=== PATIENT | male | born 1995 | race Caucasian/White ===

== ENCOUNTER 2019-07-05 09:50 | Emergency (ER) | payer OTHER, SELFPAY ==
[2019-07-05 10:00] VITALS: BP 125/67; PULSE 87; RESP 20; TEMP 36.8; O2SAT 98
--- NOTE | 2019-07-05 10:10 | ED.URI ---
HPI - URI/Sore Throat General Chief Complaint: Upper Respiratory Infection Stated Complaint: cough/sore throat/body aches Time Seen by Provider: 07/05/19 10:10 Source: patient and RN notes reviewed Mode of arrival: ambulatory Limitations: no limitations History of Present Illness HPI Narrative: A 23 y/o male presents to the with multiple, constant, URI symptoms for the past 2-3 days. He states that he woke up with a sore throat 3 days ago and has since developed body aches, fatigue, and a dry cough. He reports that his mother has been sick with similar symptoms for a couple weeks. He notes that NyQuil has helped with his symptoms. He denies any ear aches, wheezes, N/V/D, and any other medical complaints at this time. Influenza POC test positive for type A influenza MD elicited complaint: other (Multiple) Onset (ago): day(s) (3) Consistency: constant Relieving factors: OTC cold medicine Context: sick contacts (mother) Associated symptoms: sore throat, cough (dry) and other (fatigue and body aches) Treatments prior to arrival: cold medicine Related Data Home Medications Medication Instructions Recorded Confirmed [id number] cap PO 07/05/19 [Vicks DayQuil-NyQuil] Mucinex 07/05/19 acetaminophen [Tylenol] 325 mg PO ONCE 07/05/19 07/05/19 Allergies Allergy/AdvReac Type Severity Reaction Status Date / Time No Known Allergies Allergy Verified 07/05/19 10:06 Review of Systems Review of Systems: Narrative: General/Constitutional: No weight loss,fever. Reports fatigue and body aches. Eyes: N0: Redness,discharge Ears/Nose/Throat: No: Epistaxis,ear discharge, ear aches. Reports a sore throat. Respiratory: Denies: Hemoptysis or wheezes. Reports a dry cough Gastrointestinal: No N/V/D, Bleeding-rectal Skin: No Lumps, eruption Neurologic: No Focal Weakness,Sz Hematologic: Denies: Petechiae/Purpura Psychiatric: No: Suicida ideationl All Other Systems: Reviewed and Negative [facility] Past Medical History Medical History (Updated 07/05/19 @ 10:50 by Kamar Meek MD) Depression Surgical History Surgical History (Updated 07/05/19 @ 10:41 by William Elias) No history of previous surgery Social History Social History (Updated 07/05/19 @ 10:41 by William Elias) Smoking status: Never smoker Exam Narrative: Exam Narrative: General Appearance: Well appearing, Well nourished EYE: PERRLA, Conjunctiva clear Ears: Auditory canal normal, TM normal Nose: Rhinorrhea, Mucousal erythema Mouth/Throat: MM moist, Uvula midline, Pharyngeal erythema Neck: Supple, No adenopathy Respiratory: No respiratory distress, Breath sounds equal, Clear to auscultation(with rare wheeze] Cardiovascular: RRR, No JVD Musculoskeletal: Non tender, Normal strength Skin: Warm, Dry Neurological: A&O x3, CN II-XII intact Psychiatric: Normal mood, Normal affect Course Vital Signs Vital signs: Vital Signs Temperature 98.2 F 07/05/19 10:00 Pulse Rate 87 07/05/19 10:00 Respiratory Rate 20 07/05/19 10:00 Blood Pressure 125/67 07/05/19 10:00 Pulse Oximetry 98 07/05/19 10:00 Temperature 98.2 F 07/05/19 10:00 Pulse Rate 87 07/05/19 10:00 Respiratory Rate 20 07/05/19 10:00 Blood Pressure 125/67 07/05/19 10:00 Pulse Oximetry 98 07/05/19 10:00 MDM - URI/Sore Throat Lab Data Labs: Influenza A Screen Positive Reference Range: Negative Influenza B Screen Negative Reference Range: Negative Discharge Plan Discharge Clinical Impression: Influenza A Patient Disposition: Home, Self-Care Condition: Stable Instructions: Influenza (ED) Prescriptions: New benzonatate [Tessalon Perles] 100 mg capsule 100 mg PO TID Qty: 20 RF: 1 codeine-guaifenesin 10-100 mg/5 mL liquid 7.5 ml PO Q6H PRN (Reason: cough) Qty: 118 RF: 0 oseltamivir [Tamiflu] 75 mg capsule 75 mg PO Q12H 5 Days Qty: 10 RF: 0 No Action
== END 2019-07-05 10:18 | disposition home or self-care (01) ==
PROVIDERS: Emergency Provider Emergency Medicine
DX: J10.1 Influenza due to other identified influenza virus with other respiratory manifestations (principal)
CPT/HCPCS: 87804; 99203; G0463

== ENCOUNTER 2020-08-12 09:43 | Outpatient (CLI) | payer OTHER, SELFPAY ==
[2020-08-12 11:27] LABS: Hemoglobin A1C 4.9 % (<5.7)
[2020-08-12 11:39] LABS: Alanine Aminotransferase 45 U/L (4-50); Albumin Level 4.4 g/dL (3.5-5.1); Alkaline Phosphatase 71 U/L (38-126); Anion Gap 4 mmol/L (8-16); Aspartate Amino Transferase 31 U/L (17-59); Bilirubin,Total 0.5 mg/dL (0.2-1.3); Blood Urea Nitrogen 14 mg/dL (9-20); Calcium 9.3 mg/dL (8.4-10.2); Carbon Dioxide 32 mmol/L (22-30); Chloride 103 mmol/L (98-107); Estimated Glomerular Filt Rate > 60; Glucose 93 mg/dL (75-110); Potassium 4.2 mmol/L (3.4-5.0); Sodium 139 mmol/L (137-145)
== END 2020-08-12 09:44 | disposition home or self-care (01) ==
PROVIDERS: PCP Internal Medicine; Visit Provider Nurse Practitioner
DX: Z00.00 Encounter for general adult medical examination without abnormal findings (principal); Z68.39 Body mass index [BMI] 39.0-39.9, adult
CPT/HCPCS: 36415; 80053; 83036; 84443

== ENCOUNTER 2021-09-08 08:46 | Outpatient (CLI) | payer OTHER, SELFPAY ==
[2021-09-08 09:42] LABS: Alanine Aminotransferase 43 U/L (4-50); Albumin Level 4.5 g/dL (3.5-5.1); Alkaline Phosphatase 74 U/L (38-126); Anion Gap 6 mmol/L (8-16); Aspartate Amino Transferase 31 U/L (17-59); Bilirubin,Total 0.4 mg/dL (0.2-1.3); Blood Urea Nitrogen 15 mg/dL (9-20); Calcium 8.9 mg/dL (8.4-10.2); Carbon Dioxide 28 mmol/L (22-30); Chloride 105 mmol/L (98-107); Cholesterol 184 mg/dL (0-200); Estimated Glomerular Filt Rate > 60; Glucose 101 mg/dL (65-110); HDL Direct 45 mg/dL; Potassium 4.1 mmol/L (3.4-5.0); Sodium 139 mmol/L (137-145); Triglycerides 54 mg/dL (<150)
[2021-09-08 09:54] LABS: LDL Cholesterol Direct 109 mg/dL
== END 2021-09-08 08:47 | disposition home or self-care (01) ==
LOC: ANHLAB 08:49
PROVIDERS: PCP Internal Medicine; Visit Provider Nurse Practitioner
DX: R63.5 Abnormal weight gain (principal); Z13.29 Encounter for screening for other suspected endocrine disorder; Z13.6 Encounter for screening for cardiovascular disorders; Z13.220 Encounter for screening for lipoid disorders
CPT/HCPCS: 36415; 80053; 80061; 84443

== ENCOUNTER 2022-09-09 07:53 | Outpatient (CLI) | payer OTHER, SELFPAY ==
[2022-09-09 08:20] LABS: Alanine Aminotransferase 36 U/L (6-50); Albumin Level 4.6 g/dL (3.5-5.1); Alkaline Phosphatase 68 U/L (38-126); Anion Gap 6 mmol/L (8-16); Aspartate Amino Transferase 28 U/L (17-59); Bilirubin,Total 0.6 mg/dL (0.2-1.3); Blood Urea Nitrogen 12 mg/dL (9-20); Carbon Dioxide 31 mmol/L (22-30); Chloride 102 mmol/L (98-107); Cholesterol 196 mg/dL (0-200); Estimated Glomerular Filt Rate > 60; Glucose 99 mg/dL (65-110); HDL Direct 43 mg/dL; Potassium 4.1 mmol/L (3.4-5.0); Sodium 139 mmol/L (137-145); Triglycerides 87 mg/dL (<150)
[2022-09-09 08:32] LABS: LDL Cholesterol Direct 124 mg/dL
== END 2022-09-09 07:54 | disposition home or self-care (01) ==
LOC: ANHLAB 07:54
PROVIDERS: Nurse Practitioner; PCP Family Medicine; Visit Provider Family Medicine
DX: F32.A Depression, unspecified (principal); Z13.220 Encounter for screening for lipoid disorders; Z13.6 Encounter for screening for cardiovascular disorders
CPT/HCPCS: 36415; 80053; 80061; 84443

== ENCOUNTER 2023-09-03 07:19 | Outpatient (CLI) | payer OTHER, BC, SELFPAY ==
[2023-09-03 07:52] LABS: Basophils Percent Auto 0.4 % (0.2-1.2); Eosinophils Absolute Auto 0.2 K/mm3 (0-0.3); Eosinophils Percent Auto 1.7 % (0-4.4); Hematocrit 48.3 % (42.0-52.0); Hemoglobin 16.4 g/dL (14.0-18.0); Immature Granulocyte Absolute 0.03 K/mm3 (0.00-0.031); Immature Granulocyte Percent A 0.3 % (0-0.5); Lymphocytes Absolute Auto 2.73 K/mm3 (0.9-3.2); Lymphocytes Percent Auto 26.8 % (18.3-44.2); Mean Corpuscular Hemoglobin 31.5 pg (26-34); Mean Corpuscular Volume 92.9 fl (80-100); Mean Platelet Volume 10.5 fl (7.4-10.4); Monocytes Absolute Auto 0.8 K/mm3 (0.1-0.6); Monocytes Percent Auto 7.7 % (2.6-8.5); Neutrophils Absolute Auto 6.4 K/mm3 (1.3-6.7); Neutrophils Percent Auto 63.1 % (45.5-73.1); Platelet Count Result 299 k/mm3 (150-375); Red Cell Distribution Width 12.5 % (11.5-14.5); White Blood Count 10.2 K/mm3 (4.5-10.0)
[2023-09-03 07:59] LABS: Alanine Aminotransferase 32 U/L (6-50); Albumin Level 4.6 g/dL (3.5-5.1); Alkaline Phosphatase 83 U/L (38-126); Anion Gap 8 mmol/L (4-12); Aspartate Amino Transferase 24 U/L (17-59); Bilirubin,Total 0.7 mg/dL (0.2-1.3); Blood Urea Nitrogen 12 mg/dL (9-20); Calcium 9.6 mg/dL (8.4-10.2); Carbon Dioxide 28 mmol/L (22-30); Chloride 103 mmol/L (98-107); Estimated Glomerular Filt Rate > 60; Glucose 101 mg/dL (65-110); Potassium 3.9 mmol/L (3.4-5.0); Sodium 139 mmol/L (137-145)
== END 2023-09-03 07:20 | disposition home or self-care (01) ==
PROVIDERS: PCP Nurse Practitioner Family; Visit Provider Nurse Practitioner Family
DX: Z00.00 Encounter for general adult medical examination without abnormal findings (principal); F32.A Depression, unspecified; F90.9 Attention-deficit hyperactivity disorder, unspecified type; R73.01 Impaired fasting glucose; E66.9 Obesity, unspecified; Z68.39 Body mass index [BMI] 39.0-39.9, adult
CPT/HCPCS: 36415; 80053; 83036; 85025

== ENCOUNTER 2024-10-19 09:25 | Outpatient (CLI) | payer OTHER, SELFPAY ==
--- OUTSIDE RECORDS SUMMARY | 2024-10-19 09:43 | XMS_ITS | CONTINUITY OF CARE DOCUMENT ---
Author Name aden abelinobraeden Address Unknown Organization [facility] Address [address] [place] [address] Phone [phone] Care Team Providers Care Bag Printer Name Role Phone Hector JUÁREZ, Jennifer Unavailable YESENIA JUÁREZ, LO Torres Unavailable INSURANCE PROVIDERS Payer name Policy type / Coverage type [place] red democrat ID [employer] Commercial insurance [facility] [id number]
[2024-10-19 09:59] LABS: Basophils Absolute Auto 0.1 K/mm3 (0.0-0.1); Basophils Percent Auto 0.7 % (0.2-1.2); Eosinophils Absolute Auto 0.1 K/mm3 (0-0.3); Eosinophils Percent Auto 1.9 % (0-4.4); Hematocrit 45.1 % (42.0-52.0); Hemoglobin 15.4 g/dL (14.0-18.0); Immature Granulocyte Absolute 0.01 K/mm3 (0.00-0.031); Immature Granulocyte Percent A 0.1 % (0-0.5); Lymphocytes Absolute Auto 1.96 K/mm3 (0.9-3.2); Lymphocytes Percent Auto 27.2 % (18.3-44.2); Mean Corpuscular HGB Conc 34.1 g/dl (32-36); Mean Corpuscular Hemoglobin 31.8 pg (26-34); Mean Platelet Volume 10.4 fl (7.4-10.4); Monocytes Absolute Auto 0.6 K/mm3 (0.1-0.6); Monocytes Percent Auto 8.2 % (2.6-8.5); Neutrophils Absolute Auto 4.5 K/mm3 (1.3-6.7); Neutrophils Percent Auto 61.9 % (45.5-73.1); Platelet Count Result 276 k/mm3 (150-375); Red Blood Count 4.85 M/mm3 (4.6-6.20); Red Cell Distribution Width 12.2 % (11.5-14.5); White Blood Count 7.2 K/mm3 (4.5-10.0)
[2024-10-19 11:11] LABS: Alanine Aminotransferase 22 U/L (6-50); Albumin Level 4.4 g/dL (3.5-5.1); Alkaline Phosphatase 65 U/L (38-126); Anion Gap 8 mmol/L (4-12); Aspartate Amino Transferase 24 U/L (17-59); Bilirubin,Total 0.5 mg/dL (0.2-1.3); Blood Urea Nitrogen 13 mg/dL (9-20); Calcium 9.2 mg/dL (8.4-10.2); Carbon Dioxide 28 mmol/L (22-30); Chloride 105 mmol/L (98-107); Cholesterol 173 mg/dL (0-200); Estimated Glomerular Filt Rate > 60; Glucose 95 mg/dL (65-110); HDL Direct 39 mg/dL; Potassium 4.1 mmol/L (3.4-5.0); Sodium 141 mmol/L (137-145); Total Protein 7.2 g/dL (6.3-8.2); Triglycerides 71 mg/dL (<150)
[2024-10-19 11:23] LABS: LDL Cholesterol Direct 105 mg/dL
== END 2024-10-19 09:26 | disposition home or self-care (01) ==
LOC: ANHLAB 09:26
PROVIDERS: PCP Nurse Practitioner Family; Visit Provider Nurse Practitioner Family
DX: Z00.00 Encounter for general adult medical examination without abnormal findings (principal)
CPT/HCPCS: 36415; 80053; 80061; 85025